=== PATIENT | female | born 1960 | race Two or more races ===

== ENCOUNTER → 2018-01-02 | Outpatient (CLI) | payer OTHER | END | disposition home or self-care (01) | LOC: PPH VACUNA 08:36 | DX: Z23 Encounter for immunization (principal) ==

== ENCOUNTER 2021-08-06 08:00 | Outpatient (CLI) | payer OTHER | END 2021-08-06 08:30 | disposition home or self-care (01) | LOC: PPH VACUNA 08:00 | PROVIDERS: ATTEND Emergency Medicine Pediatric Emergency Medicine | DX: Z23 Encounter for immunization (principal) ==

== ENCOUNTER 2022-02-27 08:00 | Outpatient (CLI) | payer OTHER | END 2022-02-27 08:30 | disposition home or self-care (01) | LOC: PPH VACUNA 08:00 | PROVIDERS: ATTEND Emergency Medicine Pediatric Emergency Medicine | DX: Z23 Encounter for immunization (principal) ==

== ENCOUNTER 2022-07-23 13:47 | Outpatient (CLI) | payer OTHER | END 2022-07-23 13:57 | disposition home or self-care (01) | LOC: PPH VACUNA 13:47 | PROVIDERS: ATTEND Emergency Medicine Pediatric Emergency Medicine | DX: Z23 Encounter for immunization (principal) ==

== ENCOUNTER 2024-01-13 10:58 | Outpatient (CLI) | payer OTHER | END 2024-01-13 11:08 | disposition home or self-care (01) | LOC: PPH VACUNA 10:58 | PROVIDERS: ATTEND Emergency Medicine Pediatric Emergency Medicine | DX: Z23 Encounter for immunization (principal) | CPT/HCPCS: 90653; G0008 ==

== ENCOUNTER 2025-01-14 08:45 | Outpatient (CLI) | payer OTHER | END 2025-01-14 08:55 | disposition home or self-care (01) | LOC: PPH VACUNA 08:45 | PROVIDERS: ATTEND Emergency Medicine Pediatric Emergency Medicine | DX: Z23 Encounter for immunization (principal) ==